=== PATIENT | male | born 1985 | race Caucasian/White ===

== ENCOUNTER 2017-05-09 18:41 | Emergency (ER) | payer MEDICAID, OTHER ==
[~2017-05-09] VITALS: Ht 170.2 cm; Wt 59.1 kg
[~2017-05-09 18:41] MED LIST: DIVA500T35 PO; FLUO15GE TP; RISP2 PO; RISP3 PO
[2017-05-09 19:56] LABS: APPEARANCE,URINE CLEAR (CLEAR); BILIRUBIN,URINE NEGATIVE (NEGATIVE); GLUCOSE, URINE (UA) NEGATIVE (NEGATIVE); KETONES,URINE NEGATIVE (NEGATIVE); LEUKOCYTE ESTERASE ,URINE NEGATIVE (NEGATIVE); NITRATE,URINE NEGATIVE (NEGATIVE); OCCULT BLOOD,URINE NEGATIVE (NEGATIVE); PH,URINE 6.5 (5.0-8.0); PROTEIN,URINE TRACE (NEGATIVE)
[2017-05-09 19:57] LABS: BASOPHILS % (AUTO) 0.8 % (0.0-2.0); HEMOGLOBIN 13.7 g/dL (13.5-17.5); LYMPHOCYTES # (AUTO) 1.3 K/uL (1.0-4.8); LYMPHOCYTES % (AUTO) 13.9 % (22.0-44.0); MEAN CORPUSCULAR HEMOGLOBIN 31.4 pg (26.0-34.0); MEAN CORPUSCULAR HGB CONC 34.3 G/dL (31.0-37.0); MEAN CORPUSCULAR VOLUME 91 fL (80-100); MONOCYTES # (AUTO) 0.8 K/uL (0.1-1.0); MONOCYTES % (AUTO) 8.3 % (2.0-9.0); NEUTROPHILS # (AUTO) 6.8 K/uL (1.8-7.7); PLATELET COUNT (AUTO) 207 K/uL (150-450); RED BLOOD CELL COUNT(AUTO) 4.38 MIL/uL (4.50-5.90); RED CELL DISTRIBUTION WIDTH 14.1 % (11.5-14.5)
[2017-05-09 20:01] LABS: AMPHET/METH SCREEN,URINE NEGATIVE (NEGATIVE); BARBITURATE SCREEN, URINE NEGATIVE (NEGATIVE); BENZODIAZEPINES SCREEN,URINE NEGATIVE (NEGATIVE); CANNABINOID SCREEN,URINE POSITIVE (NEGATIVE); COCAINE SCREEN,URINE NEGATIVE (NEGATIVE); METHADONE SCREEN, URINE NEGATIVE (NEGATIVE); OPIATE SCREEN,URINE NEGATIVE (NEGATIVE)
[2017-05-09 20:03] LABS: PHENCYCLIDINE SCREEN,URINE NEGATIVE (NEGATIVE)
[2017-05-09 20:28] LABS: ANION GAP 6 mmol/L (8-16); CALCIUM, TOTAL 8.7 mg/dL (8.8-10.5); CARBON DIOXIDE 31 mmol/L (22-29); CHLORIDE 105 mmol/L (98-107); GLOMERULAR FILTR. RATE CALC > 60 mL/min (>60); GLUCOSE,RANDOM 101 mg/dL (70-110); POTASSIUM 3.7 mmol/L (3.5-5.1); SODIUM SERUM 142 mmol/L (136-145); UREA NITROGEN, BLOOD 18 mg/dL (7-18)
[2017-05-09 20:31] LABS: ALANINE AMINOTRANSFERASE 19 U/L (12-78); ALBUMIN 3.7 g/dL (3.4-5.0); ALKALINE PHOSPHATASE 90 U/L (46-116); ASPARTATE AMINOTRANSFERASE 22 U/L (15-37); BILIRUBIN,TOTAL 0.2 mg/dL (0.1-1.0); LIPASE 160 U/L (73-393); PLATELET MORPHOLOGY COMMENT NORMAL; TOTAL PROTEIN, SERUM 6.8 g/dL (6.4-8.2)
[2017-05-09 20:32] LABS: VALPROIC ACID < 3 mcg/mL (50-100)
[2017-05-09 21:10] VITALS: BP 110/52
== END 2017-05-09 21:15 | disposition home or self-care (01) ==
LOC: EMS 18:42
DX: F41.9 Anxiety disorder, unspecified (principal); Z79.899 Other long term (current) drug therapy
CPT/HCPCS: 36415; 80053; 80164; 80307; 81003; 83690; 85025; 99284; G0480

== ENCOUNTER 2017-08-01 17:29 | Inpatient (IN) | payer MEDICAID, OTHER ==
[~2017-08-01] VITALS: Ht 167.6 cm; Wt 54.4 kg
[2017-08-01 19:38] LABS: BASOPHILS % (AUTO) 0.8 % (0.0-2.0); EOSINOPHILS % (AUTO) 3.7 % (1.0-6.0); HEMATOCRIT 43.3 % (41-53); HEMOGLOBIN 14.9 g/dL (13.5-17.5); LYMPHOCYTES # (AUTO) 1.9 K/uL (1.0-4.8); LYMPHOCYTES % (AUTO) 16.7 % (22.0-44.0); MEAN CORPUSCULAR HEMOGLOBIN 30.6 pg (26.0-34.0); MEAN CORPUSCULAR HGB CONC 34.3 G/dL (31.0-37.0); MEAN CORPUSCULAR VOLUME 89 fL (80-100); MONOCYTES % (AUTO) 8.6 % (2.0-9.0); NEUTROPHILS # (AUTO) 7.9 K/uL (1.8-7.7); NEUTROPHILS % (AUTO) 70.2 % (40.0-70.0); PLATELET COUNT (AUTO) 257 K/uL (150-450); RED BLOOD CELL COUNT(AUTO) 4.85 MIL/uL (4.50-5.90); RED CELL DISTRIBUTION WIDTH 14.8 % (11.5-14.5)
[2017-08-01 19:45] LABS: ANION GAP 7 mmol/L (8-16); CALCIUM, TOTAL 9.6 mg/dL (8.8-10.5); CARBON DIOXIDE 29 mmol/L (22-29); CHLORIDE 102 mmol/L (98-107); CREATININE 0.88 mg/dL (0.60-1.30); GLOMERULAR FILTR. RATE CALC > 60 mL/min (>60); GLUCOSE,RANDOM 83 mg/dL (70-110); POTASSIUM 4.6 mmol/L (3.5-5.1); SODIUM SERUM 138 mmol/L (136-145); UREA NITROGEN, BLOOD 9 mg/dL (7-18)
[2017-08-01] MEDS ORDERED: ZOLPIDEM TARTRATE 10 MG TABLET PO PRN (19:45)
[2017-08-01 19:50] LABS: ALANINE AMINOTRANSFERASE 31 U/L (12-78); ALKALINE PHOSPHATASE 112 U/L (46-116); ASPARTATE AMINOTRANSFERASE 27 U/L (15-37); BILIRUBIN,TOTAL 0.5 mg/dL (0.1-1.0); TOTAL PROTEIN, SERUM 8.1 g/dL (6.4-8.2)
[2017-08-01] MEDS ORDERED: DiphenhydrAMINE HCL 25 MG CAPSULE PO ONE (20:45)
[2017-08-01] MEDS ORDERED: LORazepam 1 MG TABLET PO ONE (20:45)
[2017-08-01] MEDS ORDERED: HALOPERIDOL 5 MG TABLET PO ONE (20:45)
[2017-08-01 22:23] VITALS: BP 119/70
[2017-08-01 22:31] VITALS: BP 119/70
[2017-08-02 17:09] VITALS: BP 101/49
[2017-08-02] MEDS: DIVALPROEX SODIUM 500 MG ER TABLET PO SCH (17:41)
[2017-08-02] MEDS: RisperiDONE 3 MG TABLET PO SCH (17:41)
[2017-08-03 04:00] VITALS: BP 122/79
[2017-08-03] MEDS: OMEGA-3/DHA/EPA/FISH OIL 1,000 MG CAPSULE PO SCH (08:36)
[2017-08-03] MEDS: RisperiDONE 3 MG TABLET PO SCH ×2 (08:36→17:09)
[2017-08-03] MEDS: DIVALPROEX SODIUM 500 MG ER TABLET PO SCH ×2 (08:36→17:09)
[2017-08-03 11:07] VITALS: BP 125/85
[2017-08-03 17:18] VITALS: BP 118/82
[2017-08-03] MEDS: LORazepam 2 MG TABLET PO PRN (21:28)
[2017-08-04] MEDS: RisperiDONE 3 MG TABLET PO SCH ×2 (09:06→16:51)
[2017-08-04] MEDS: DIVALPROEX SODIUM 500 MG ER TABLET PO SCH ×2 (09:06→16:51)
[2017-08-04] MEDS: OMEGA-3/DHA/EPA/FISH OIL 1,000 MG CAPSULE PO SCH (09:06)
[2017-08-04 16:52] VITALS: BP 115/67
[2017-08-04] MEDS: HALOPERIDOL 5 MG TABLET PO PRN (20:22)
[2017-08-04] MEDS: LORazepam 2 MG TABLET PO PRN (20:22)
[2017-08-05 08:05] VITALS: BP 103/65
[2017-08-05] MEDS: OMEGA-3/DHA/EPA/FISH OIL 1,000 MG CAPSULE PO SCH (09:39)
[2017-08-05] MEDS: DIVALPROEX SODIUM 500 MG ER TABLET PO SCH (09:39)
[2017-08-05] MEDS: RisperiDONE 3 MG TABLET PO SCH (09:39)
[2017-08-05] MEDS: FLUOCINONIDE 0.05% TP SCH ×2 (12:12→17:24)
[2017-08-05] MEDS: DIVALPROEX SODIUM 250 MG ER TABLET PO SCH (17:23)
[2017-08-05] MEDS: LORazepam 2 MG TABLET PO PRN (17:24)
[2017-08-05] MEDS: HALOPERIDOL 5 MG TABLET PO PRN (17:24)
[2017-08-05] MEDS: RisperiDONE 4 MG TABLET PO SCH (17:24)
[2017-08-05 19:43] VITALS: BP 114/75
[2017-08-06 08:00] VITALS: BP 98/55
[2017-08-06] MEDS: DIVALPROEX SODIUM 250 MG ER TABLET PO SCH (09:06)
[2017-08-06] MEDS: OMEGA-3/DHA/EPA/FISH OIL 1,000 MG CAPSULE PO SCH (09:06)
[2017-08-06] MEDS: RisperiDONE 4 MG TABLET PO SCH (09:06)
[2017-08-06] MEDS: FLUOCINONIDE 0.05% TP SCH (09:06)
[2017-08-06] MEDS ORDERED: OMEG-135 PO (10:33)
== END 2017-08-06 12:00 | disposition home or self-care (01) | DRG 750 ==
LOC: EMS 17:32 → 3EI 20:16
PROVIDERS: ADMIT Psychiatry & Neurology Psychiatry; ATTEND Psychiatry & Neurology Psychiatry
DX: F20.0 Paranoid schizophrenia (principal); Z59.0 Homelessness; D72.829 Elevated white blood cell count, unspecified; L40.9 Psoriasis, unspecified; Z79.899 Other long term (current) drug therapy; Z91.030 Bee allergy status
CPT/HCPCS: 99285; G0480